=== PATIENT | male | born 1945 | race Caucasian/White ===

== ENCOUNTER 2016-10-29 20:43 | Emergency (ER) | payer OTHER ==
[2016-10-29 20:49] VITALS: BP 165/97
--- NOTE | 2016-10-29 21:57 | ED ---
Skin Complaint - HPI Summary HPI Summary: 71M presents with rash on face for a day. He states he has been on a mood stabilizer since February and has not change his dosage recently but one of the side effects is a rash. He states he also got some cleaning product on the area a couple days ago. He was seen [facility] and started on triamcinolone. He states the rash continues to spread. He denies any new foods or products. He states the area it itchy. He denies any chest pain, SOB, or abdominal pain. He denies any difficulty swallowing. He states was diagnosed with rosacea years ago but has not been treated for it in years. - History of Current Complaint Chief Complaint: EDRashSkinAbscess Time Seen by Provider: 10/29/16 21:04 Stated Complaint: RASH ON FACE Pain Intensity: 0 - Allergy/Home Medications Allergies/Adverse Reactions: Allergies Allergy/AdvReac Type Severity Reaction Status Date / Time Diazepam [From Valium] Allergy Unknown Verified 10/29/16 20:48 Reaction Details PMH/Surg Hx/FS Hx/Imm Hx Endocrine/Hematology History: Denies: Hx Anticoagulant Therapy Cardiovascular History: Reports: Hx Hypertension Infectious Disease History: No Infectious Disease History: Denies: Traveled Outside the [place] in Last 30 Days - Family History Known Family History: Positive: Cardiac Disease - Social History Alcohol Use: None Substance Use Type: Reports: None Smoking Status (MU): Never Smoked Tobacco Review of Systems Negative: Fever Negative: Chest Pain Negative: Shortness Of Breath Positive: Rash All Other Systems Reviewed And Are Negative: Yes Physical Exam Triage Information Reviewed: Yes Vital Signs On Initial Exam: Initial Vitals Temp Pulse Resp BP Pulse Ox 98.0 F 79 16 165/97 93 10/29/16 20:45 10/29/16 20:45 10/29/16 20:45 10/29/16 20:45 10/29/16 20:45 Vital Signs Reviewed: Yes Appearance: Positive: Well-Appearing Skin: Positive: Warm, Dry, Other - pustules across forehead and nose with erythma, telangiectasia on nose Head/Face: Positive: Normal Head/Face Inspection Eyes: Positive: Normal, EOMI, MAKENZIE, Conjunctiva Clear ENT: Positive: Normal ENT inspection, Pharynx normal, TMs normal Respiratory/Lung Sounds: Positive: Clear to Auscultation, Breath Sounds Present Cardiovascular: Positive: Normal, RRR Diagnostics - Vital Signs Vital Signs Temp Pulse Resp BP Pulse Ox 10/29/16 21:27 98.0 F 79 16 165/97 93 10/29/16 20:45 98.0 F 79 16 165/97 93 - Laboratory Lab Statement: Any lab studies that have been ordered have been reviewed, and results considered in the medical decision making process. Course/Dx - Course Course Of Treatment: 71M presents with rash on face for a day. He states he has been on a mood stabilizer since February and has not change his dosage recently but one of the side effects is a rash. He states he also got some cleaning product on the area a couple days ago. He was seen [facility] and started on triamcinolone. He states the rash continues to spread. He denies any new foods or products. He states the area it itchy. He denies any chest pain, SOB , or abdominal pain. He denies any difficulty swallowing. He states was diagnosed with rosacea years ago but has not been treated for it in years. on exam has pusular lesions on redness. appears more like rosecea but due to history of contact with cleaning product will treat as contact dermatitis at this time. patient has follow up scheduled for next week. patient understands and agrees with plan. - Differential Diagnoses - Skin Complaint Differential Diagnoses: Contact Dermatitis, Other - roscea, allergic reaction - Diagnoses Provider Diagnoses: Facial rash Discharge - Discharge Plan Condition: Good Disposition: HOME Patient Education Materials: Contact Dermatitis (ED) Referrals: Non Staff,Doctor [Primary Care Provider] - Additional Instructions: You rash may represent rosacea or could be contact dermatitis Use non irritating soap to wash face daily Apply steroid once a day Take Benadryl every 6-8 for next to two days Follow up with primary about rash Return to ED if develop any new or worsening symptoms
== END 2016-10-29 22:04 | disposition home or self-care (01) ==
LOC: ED 20:43
DX: R21 Rash and other nonspecific skin eruption (principal)
CPT/HCPCS: 99281

== ENCOUNTER 2017-03-30 11:08 | Observation (INO) | payer OTHER ==
[2017-03-30 12:34] LABS: ABS Basophils 0 10^3/ul (0-0.2); ABS Eosinophils 0.1 10^3/ul (0-0.6); ABS Monocytes 0.6 10^3/ul (0-0.8); ABS Nucleated RBC 0 10^3/ul; Eosinophil % 0.6 % (0-6); Hematocrit 44 % (42-52); Hemoglobin 15.2 g/dl (14.0-18.0); Mean Corpuscular HGB Conc 35 g/dl (31-36); Mean Corpuscular Hemoglobin 32 pg (27-31); Mean Corpuscular Volume 91 fL (80-94); Mean Platelet Volume 7 um3 (7.4-10.4); Nucleated Red Blood Cells % 0; Platelet Count 241 10^3/ul (150-450); Red Blood Count 4.83 10^6/ul (4.0-5.4); Red Cell Distribution Width 14 % (10.5-15); White Blood Count 9.7 10^3/ul (3.5-10.8)
[2017-03-30 12:46] LABS: EGFR Non-African American 76.5 (>60); INR 1.25 (0.77-1.02)
--- NOTE | 2017-03-30 13:00 | RAD ---
INDICATION: Chest pain COMPARISON: None TECHNIQUE: PA and lateral dual-energy views were obtained. FINDINGS: Bones/Soft Tissues: There are no acute bony findings. Cardiomediastinal: The cardiomediastinal silhouette is normal. Lungs: There are no infiltrates. Pleura: There are no pleural effusions. Other: None IMPRESSION: NO ACTIVE DISEASE.
[2017-03-30] MEDS ORDERED: Iohexol 350* (CONTRAST) 500 ML MDV IV ONE (13:27)
--- NOTE | 2017-03-30 14:31 | RAD ---
Indication: Chest pain extending to the back. Contrast: Administered 100.1 ml of OMNIPAQUE 350 mg/ml CTA of the chest was performed after IV contrast demonstration. CTA of the abdomen and pelvis was also performed. Coronal and sagittal reconstructed images were obtained. The thoracic aorta is well opacified. No evidence of aortic dissection. No aneurysmal dilatation of the thoracic aorta is noted. Submandibular glands are unremarkable. There is no mediastinal or hilar adenopathy noted. Heart is of normal size without evidence of pericardial effusion. The trachea and major bronchi appear patent. There is dependent changes in the left base as well as in the left upper lobe with emphysematous changes. No focal nodules are noted. The abdominal aorta demonstrates no evidence of aneurysmal dilatation. Celiac axis, superior mesenteric artery, left and right renal arteries appear patent. There appears to be due to origins of the left renal artery. Atherosclerosis of the distal abdominal aorta is noted. Inferior mesenteric artery is unremarkable. Common iliac artery and external iliac arteries are unremarkable with no aneurysmal dilatation. Calcific plaque is noted. The liver is normal normal in size. No focal lesions or intrahepatic ductal dilatation is noted. The spleen is normal in size. The common duct is not dilated. The pancreas demonstrates no mass or pancreatic duct dilatation. The gallbladder demonstrates no calcified gallstones. Common duct is not dilated. No retroperitoneal adenopathy is noted. No adrenal lesions are noted. The kidneys demonstrate symmetric nephrograms without focal lesions. No retroperitoneal lymphadenopathy is noted. No dilated loops of bowel are noted. The urinary bladder is unremarkable. Prostate and seminal vesicles are unremarkable. No hernias are noted. IMPRESSION: No evidence of aortic dissection is noted. No evidence of thoracic or abdominal aortic aneurysm is noted. Minimal atherosclerosis is noted in the aorta.
[2017-03-30] MEDS ORDERED: Loperamide CAP* 2 MG PO PRN ×2 (17:11→17:18)
[2017-03-30] MEDS ORDERED: Cetirizine* 10 MG TAB PO PRN (17:11)
[2017-03-30] MEDS ORDERED: Nitroglycerin TAB 0.4 MG* 0.4 MG TAB SL PRN (17:13)
[2017-03-30] MEDS ORDERED: Dextrose 50% Syringe 50 ML* 25 GM/50 ML SYRINGE IV PUSH PRN (17:13)
[2017-03-30] MEDS ORDERED: Nitroglycerin TAB 0.4 MG* 0.4 MG TAB SL ONE (17:15)
[2017-03-30] MEDS ORDERED: Calcium Carbonate CHEW TAB* 500 MG (TUMS) PO PRN (17:38)
[2017-03-30] MEDS ORDERED: Acetaminophen TAB* 325 MG PO PRN (20:33)
[2017-03-30] MEDS: lamoTRIgine TAB(*) 100 MG PO SCH (20:40)
[2017-03-30] MEDS: Apixaban* 5 MG TAB PO SCH (20:40)
[2017-03-30] MEDS ORDERED: Heparin VIAL(*) 5000 UNITS/ML VIAL (FIVE THOUSAND) SUBCUT SCH (22:00)
--- NOTE | 2017-03-30 23:17 | HP ---
CC: SOHEILA Shrestha * HISTORY AND PHYSICAL: DATE OF ADMISSION: 03/30/17 PRIMARY CARE PROVIDER: SOHEILA Shrestha. MY ATTENDING WHILE IN THE HOSPITAL: Dr. Alicja Ellis * (DICTATED BY MARI POWELL) CHIEF COMPLAINT: Chest pain radiating to the patient's back since last night. HISTORY OF PRESENT ILLNESS: The patient is a 72-year-old male with past medical history significant for Afib, hyperlipidemia, diabetes mellitus type 2 non-insulin dependent, obstructive sleep apnea, PTSD, bipolar disorder, and multiple TBIs, who presents with approximately 12-hours of chest pain. The patient had chest pain 8/10 that started suddenly yesterday evening. The patient states that it is better when he lies down, worse with deep breathing and otherwise does not change and has been constant. The patient states that he woke up and he denies any shortness of breath, diaphoresis or other symptoms. The patient has been having significant pain, which has been decreasing his activity but denies any worsening swelling of his legs, shortness of breath with exertion or other abnormality. The patient has well controlled diabetes mellitus, on metformin. Most pertinently, the patient has been having 96 days of diarrhea since 01/11/17. The patient has been worked up as outpatient including a colonoscopy. On 03/26/17, he was diagnosed with colitis and had a large polyp removed. The patient never had an endoscopy but describes a clicking sensation in his abdomen when straining. The patient has numerous bowel movements daily that are soft. The patient admitted previously to in [place] for hypokalemia of 2.9. The patient lost 40 pounds since December and had previous 100 pound weight loss before that. The patient has not tried anything for his pain except for Tylenol, which does seem to help. The patient says he does currently have chest pain, which is 2 or 3/ 10 at the moment. The patient has a negative CTA of the chest, abdomen, and pelvis. Negative chest x-ray. EKG with no ST segment changes and single troponin, which was negative at 0.01. Hospitalist team was consulted for admission for rule out MS. PAST MEDICAL HISTORY: 1. AFib. 2. TBI. 3. Multiple PTSD. 4. Bipolar disorder. 5. Arthritis. 6. Hyperlipidemia. 7. Chronic diarrhea. 8. Diabetes mellitus type 2. 9. Carpal tunnel syndrome bilaterally. 10. Obstructive sleep apnea with CPAP use. 11. Unspecified colitis and venostasis. 12. Hypothyroidism. 13. Rosacea. PAST SURGICAL HISTORY: None. MEDICATIONS: 1. Theragran multivitamin. 2. Potassium 300 mg p.o. q.a.m. 3. Magnesium hydroxide Rene one tab p.o. q.a.m. 4. Imodium 4 mg p.o. q.a.m. as needed. 5. Simvastatin 10 mg p.o. daily. 6. Tylenol 1 g q. 8 hours as needed. 7. Aspirin 81 mg p.o. daily. 8. Nystatin powder topical as needed. 9. Metformin 100 mg p.o. q.a.m. 10. Metronidazole topical cream 0.7% cream, topical b.i.d. as needed. 11. Levothyroxine 137 mcg p.o. q.a.m. 12. Lamotrigine 10 mg p.o. b.i.d. 13. Lactobacillus acidophilus 2 cap p.o. q.a.m. 14. Dextrose 40% gel p.o. daily as needed. 15. Zyrtec 10 mg p.o. daily as needed. 16. Restore tears 0.5% both eyes q.i.d. as needed. 17. Eliquis 5 mg p.o. b.i.d. ALLERGIES: VALIUM, SULFA. The patient is also LACTOSE intolerant. FAMILY HISTORY: The patient has no family history of coronary artery disease, diabetes mellitus, or cancer. The patient cannot report any other family history. SOCIAL HISTORY: The patient quit using tobacco in 2002 after 37-pack year history. The patient quit drinking in 1985 after going to the rehab, he was a heavy drinker before that. The patient used marijuana twice in the 70s. The patient is a and is disabled due to his TBI. The patient was previously , was now , and has no kids. REVIEW OF SYSTEMS: A 14-point review of systems was conducted and is negative except as above. PHYSICAL EXAMINATION GENERAL: The patient is a 72-year-old male, who appears stated age, is somewhat disheveled and sitting in the bed, in no acute distress. VITAL SIGNS: Temperature 97.9, heart rate 81, respiratory rate 17, oxygen saturation 97% on room air, blood pressure 135/87. HEENT: Head: Normocephalic, atraumatic. Sclerae anicteric. No conjunctival injection. There is significant right-sided exotropia. Nasal mucosa moist. Oral mucosa moist. No pharyngeal erythema. NECK: Supple, nontender. No lymphadenopathy. No carotid bruits auscultated. RESPIRATORY: Clear to auscultation bilaterally. No wheezes, rales, or rhonchi. HEART: Irregularly irregular rhythm, rate between 60 and 80. No adventitious lung sounds. Pulses 2+ in the bilateral dorsalis pedis, posterior tibialis and radial areas. The patient has no edema in the bilateral lower extremities but is wearing support stockings. The patient has no venostasis changes to his skin. ABDOMEN: Soft, nontender, nondistended. Bowel sounds present and normoactive in all 4 quadrants. Unable to reproduce pain with palpation in the epigastric area. No hepatosplenomegaly. No abdominal bruits auscultated. GENITOURINARY: No suprapubic tenderness or CVA tenderness. NEUROLOGIC: Cranial nerves II through XII grossly intact except for above exotropia. No focal deficits. Alert and oriented x3. SKIN: The patient has significant scars on his fingers consistent with multiple previous healed injuries. The patient also has a dark purple area on his left hand with surrounding erythema that does not appear to be infected. PSYCHIATRIC: The patient is tangential and perseverates on things that he finds important such as meals while in the hospital, patient is otherwise pleasant and cooperative. DIAGNOSTIC STUDIES/LABORATORY DATA: White blood cell count is 9.7, hemoglobin 15.2, hematocrit 44, MCV 91, MCH 32, RDW 14, platelet count 241, neutrophil percentage 98.4, lymphocytes 10.0, INR 1.25. Sodium 136, potassium 4.2, chloride 104, carbon dioxide 28, anion gap 4, BUN 12, creatinine 9.7. Glucose 139, calcium 9.9. Total bilirubin 1.1. AST 20, ALT 16, alkaline phosphatase 7.6 , troponin-I 0.01. Studies done while in the hospital: Electrocardiogram shows atrial fibrillation , right bundle branch block, normal axis, T segments uninterpretable, QTC 436. No other abnormalities. Chest x-ray from 03/30/17 read as no active disease. Chest, abdomen, and pelvis CTA read as no evidence for aortic dissection, no evidence for thoracic or abdominal aortic aneurysm, no atherosclerosis noted in the aorta. IMPRESSION: The patient is a 72-year-old male with past medical history significant for atrial fibrillation, hyperlipidemia, diabetes mellitus type 2, obstructive sleep apnea, posttraumatic stress disorder, bipolar disorder, and chronic diarrhea, who presents with chest pain for 12 hours, which could be cardiac in origin. The patient will be admitted for a chest pain rule out with serial troponins and a stress test in the morning. ASSESSMENT AND PLAN: 1. Chest pain. The patient's chest pain is epigastric radiating to the back. He describes it as crushing and pleuritic without associated symptoms. However , the patient has significant risk factors including diabetes, hyperlipidemia, and obstructive sleep apnea. The patient states he previously had a cardiac workup in February 2016 which was negative but could not describe the exact tests done. I will get a nuclear medicine stress test in the morning to rule out chest pain, to rule out myocardial infarction we will draw two more troponins. If they stay negative, repeat EKG in the morning. 2. Chronic diarrhea. The patient has had several months of diarrhea, from which he has been previously hypokalemic. The patient is receiving outpatient workup for this with the Gastroenterology and has been diagnosed of colitis of unknown etiology. This should be further investigated as outpatient and the patient will not be helped in the hospital to further characterize this condition. At this time, the patient should continue on his potassium supplement, I will increase the patient's Imodium and continue the patient's lactobacillus. The patient also received fluids after he is n.p.o. after midnight to avoid dehydration. 3. Atrial fibrillation. The patient is anticoagulated with Eliquis. The patient is not on any rate control agents. It was previously suggested to the patient that they have a pacemaker put in but is unclear why this recommendation was made. We will attempt to get records from patient's revenue coordinator from [facility], but he is unable to state who is this at this time. 4. Hyperlipidemia, continue simvastatin. 5. Diabetes mellitus type 2, hold metformin due to possible need for cardiac catheterization. Start on insulin sliding scale with lispro and fingerstick blood glucose monitoring a.c. 6. Obstructive sleep apnea. We will continue the patient's CPAP with his home pressure of 12 while in the hospital. 7. Bipolar disorder, posttraumatic stress disorder, truamatic brain injury. Continue the patient's Lamictal. The patient does not appear manic at this type. 8. Hypothyroidism. Continue patient's Synthroid. 9. FEN. The patient will have a heart-healthy diet. No caffeine and be n.p.o. after midnight with fluids at normal saline running at 75 mL per hour. 10. DVT prophylaxis. The patient is on Eliquis. 11. Disposition. The patient is admitted for observation for rule out myocardial infarction. 12. Code status. The patient is full code. The patient's surrogate decision maker is his niece, Benji Raines, her phone number is [phone]. 13. We will give patient nitroglycerin at this time to assess its efficacy and the patient will have nitroglycerin as needed for chest pain. The patient will also have Tums available. TIME SPENT: Approximately 60 minutes was spent on this admission, 45 of which was spent [id number] with the patient obtaining history and physical and discussing treatment plan. MARI POWELL [id number]/CPS #: [id number] DI
[2017-03-30] MEDS ORDERED: NS 0.9% 1000 ML* 1,000 ML IV SCH (23:59)
[2017-03-31] MEDS ORDERED: Levothyroxine TAB* 137 MCG TAB PO SCH (06:00)
[2017-03-31] MEDS ORDERED: Insulin LISPRO* 1 UNITS UNIT SUBCUT SCH (07:30)
[2017-03-31 07:46] LABS: ABS Basophils 0 10^3/ul (0-0.2); ABS Eosinophils 0.3 10^3/ul (0-0.6); ABS Lymphocytes 1.5 10^3/ul (1.0-4.8); ABS Monocytes 0.6 10^3/ul (0-0.8); ABS Neutrophils 5.3 10^3/ul (1.5-7.7); ABS Nucleated RBC 0 10^3/ul; Eosinophil % 4.3 % (0-6); Hematocrit 42 % (42-52); Hemoglobin 14.4 g/dl (14.0-18.0); Lymphocyte % 19.7 % (25-47); Mean Corpuscular HGB Conc 34 g/dl (31-36); Mean Corpuscular Hemoglobin 32 pg (27-31); Mean Corpuscular Volume 93 fL (80-94); Mean Platelet Volume 8 um3 (7.4-10.4); Nucleated Red Blood Cells % 0.1; Platelet Count 216 10^3/ul (150-450); Red Blood Count 4.56 10^6/ul (4.0-5.4); Red Cell Distribution Width 15 % (10.5-15); White Blood Count 7.8 10^3/ul (3.5-10.8)
[2017-03-31] MEDS ORDERED: Regadenoson* 0.4 MG/5 ML SYRINGE ONE (08:57)
[2017-03-31] MEDS ORDERED: Aminophylline IV* 25 MG/ML 10 ML VIAL ONE (08:58)
[2017-03-31] MEDS ORDERED: Lactobacillus Acidophilu (GG)* 1 CAP CAP PO SCH (09:00)
[2017-03-31] MEDS ORDERED: Atorvastatin* 10 MG TAB PO SCH (09:00)
[2017-03-31] MEDS ORDERED: Aspirin EC Low Dose* 81 MG TAB.EC PO SCH (09:00)
[2017-03-31] MEDS ORDERED: POTASSIUM 300 MG PO SCH (09:00)
[2017-03-31 09:51] LABS: EGFR Non-African American 73.9 (>60)
--- NOTE | 2017-03-31 10:09 | RAD ---
HISTORY: Chest pain COMPARISONS: None TECHNIQUE: A 1 day stress/rest myocardial perfusion study was performed, with pharmacologic stress. The stress portion was monitored by Dr. Hardwick. Gated SPECT imaging was performed, with CT-based attenuation correction DOSE: Stress: Technetium 99m tetrofosmin, 25.43 millicuries, injected at 9:10 AM on March 31, 2017 Rest: Technetium 99m tetrofosmin, 11.5 millicuries, injected at 6:25 AM on March 31, 2017 Pharmacologic agent: Lexiscan FINDINGS: CARDIAC MONITORING: A. Fib with right bundle branch block, no change with stress EF: 52% TID: 1.11 MOTION: Normal motion, with normal wall thickening. PERFUSION: There are no fixed or reversible perfusion defects. OTHER: None IMPRESSION: NO FIXED OR REVERSIBLE PERFUSION DEFECTS. ASSESSMENT: LOW RISK. Based on imaging criteria from ACC/AHA 2002. Guideline Update for the Management of Patient's with Chronic Stable Angina, table 23. Noninvasive Risk Stratification. CPT II Codes: 0829K6R
[2017-03-31] MEDS: Apixaban* 5 MG TAB PO SCH (10:54)
[2017-03-31] MEDS: lamoTRIgine TAB(*) 100 MG PO SCH (10:54)
[2017-03-31 16:57] VITALS: BP 115/74
--- NOTE | 2017-03-31 19:51 | PN ---
Subjective Date of Service: 03/31/17 Interval History: States that he feel better. Denies cheat pain or shortness of breath. denies abd pain. Denies N/V/D. Family History: Unchanged from Admission Social History: Unchanged from Admission Past Medical History: Unchanged from Admission Objective Vital Signs - 8 hr 03/31/17 03/31/17 11:50 16:18 Temperature 98.7 F Pulse Rate 76 81 Respiratory 16 22 Rate Blood Pressure 135/82 115/74 (mmHg) O2 Sat by Pulse 97 100 Oximetry Oxygen Devices in Use Now: None Appearance: alert, sittting on the edge of the bed, appears comfortable Eyes: No Scleral Icterus Ears/Nose/Mouth/Throat: Clear Oropharnyx, Mucous Membranes Moist Neck: NL Appearance and Movements; NL JVP, Trachea Midline Respiratory: Symmetrical Chest Expansion and Respiratory Effort, Clear to Auscultation Cardiovascular: NL Sounds; No Murmurs; No JVD, RRR, No Edema Abdominal: NL Sounds; No Tenderness; No Distention Extremities: No Edema, No Clubbing, Cyanosis Skin: No Rash or Ulcers Neurological: Alert and Oriented x 3, NL Muscle Strength and Tone Nutrition: Taking PO's Result Diagrams: 03/31/17 07:15 03/31/17 07:15 Microbiology and Other Data: Microbiology 03/30/17 18:24 Nasal Screen MRSA (PCR)(MICHELLE) - Final Nasal Mrsa Positive Assess/Plan/Problems-Billing Assessment: This is a 72 y.o male that presented to the emergency room for chest pain, worse with deep breath. Patient carries a history of afib, chronic diarrhea hyperlipidemia,tbi , bipolar. He had a negative nuclear stress test and will be discharge home. Patient did have slow afib while in the hospital with 2 episodes of pauses of 2 seconds. patient is aware and states thathe has been told in the past that he will need a pacemaker, he currently wishes to follow up with his own gate watchman as an outpatient. Patient was asymptomatic with the pauses. Denies chest pain ,or shortness of breath. Denies dizziness or lightheadedness. - Patient Problems (1) Chest pain Status: Acute Code(s): R07.9 - CHEST PAIN, UNSPECIFIED SNOMED Code(s): 31295692 Comment: nuclear stress - negative Will discharge home (2) LAWRENCE on CPAP Status: Acute Code(s): G47.33 - OBSTRUCTIVE SLEEP APNEA (ADULT) (PEDIATRIC); Z99.89 - DEPENDENCE ON OTHER ENABLING MACHINES AND DEVICES SNOMED Code(s): 19873185 Comment: continue cpap at night (3) Afib Status: Acute Code(s): I48.91 - UNSPECIFIED ATRIAL FIBRILLATION SNOMED Code( s): 19546605 Comment: rate is controlled - not on medications for rate control continue elquis (4) bipolar Status: Acute Comment: continue lamictal (5) Hyperlipidemia Status: Acute Code(s): E78.5 - HYPERLIPIDEMIA, UNSPECIFIED SNOMED Code(s): 88197468 Comment: continue lipitor (6) Hypothyroid Status: Acute Code(s): E03.9 - HYPOTHYROIDISM, UNSPECIFIED SNOMED Code(s): 67673211 (7) Chronic diarrhea Status: Acute Code(s): K52.9 - NONINFECTIVE GASTROENTERITIS AND COLITIS, UNSPECIFIED SNOMED Code(s): 316851913 Comment: continue imodium is being followed as an outpatient by gastro (8) TBI (traumatic brain injury) Status: Acute Code(s): S06.9X9A - UNSP INTRACRANIAL INJURY W LOC OF UNSP DURATION, INIT SNOMED Code(s): 589504431 Comment: supportive care Status and Disposition: will discharge home Was instructed to follow up with own gate watchman regarding slow heart rate. Pt states that he has been worked up as an outpatient for this, has been told in the past that he will need a pacemaker. Patient state that he wants to follow up with his own gate watchman. recommended follow up this week. continue all previous medications
== END 2017-03-31 18:00 | disposition home or self-care (01) ==
LOC: ED 11:08 → MEDTELE 17:02
PROVIDERS: ADMIT Internal Medicine; ATTEND Internal Medicine
DX: R07.9 Chest pain, unspecified (principal); G47.33 Obstructive sleep apnea (adult) (pediatric); I48.91 Unspecified atrial fibrillation; K52.9 Noninfective gastroenteritis and colitis, unspecified; Z86.73 Personal history of transient ischemic attack (TIA), and cerebral infarction without residual deficits; Z79.82 Long term (current) use of aspirin; E78.5 Hyperlipidemia, unspecified; E03.9 Hypothyroidism, unspecified; F31.9 Bipolar disorder, unspecified
CPT/HCPCS: 36415; 71046; 71275; 74174; 78452; 80048; 80053; 83690; 83735; 84484; 85025; 85610; 87641; 93005; 99283; A9270-GY; A9502; G0378; J0280; J2785; Q9967